=== PATIENT | male | born 1960 | race Caucasian/White ===

== ENCOUNTER 2023-06-27 08:25 | Outpatient (CLI) | payer BC, SELFPAY | END 2023-06-27 08:26 | disposition home or self-care (01) | PROVIDERS: PCP Family Medicine; Visit Provider Family Medicine | DX: Z00.00 Encounter for general adult medical examination without abnormal findings (principal); I48.91 Unspecified atrial fibrillation; Z13.6 Encounter for screening for cardiovascular disorders; Z12.5 Encounter for screening for malignant neoplasm of prostate; Z01.818 Encounter for other preprocedural examination | CPT/HCPCS: 80053; 80061; 84153; 85025 ==

== ENCOUNTER 2024-06-09 07:04 | Outpatient (CLI) | payer BC, SELFPAY ==
--- OUTSIDE RECORDS SUMMARY | 2024-06-09 07:07 | XMS_ITS | Clinical Summary ---
Author Organization [facility] Address [address] [place] [id number] Care Team Providers Care Client Success Director Name Role Phone No Ref-Primary, Physician Primary Care Provider Allergies No known active allergies Medications Medication Sig Dispensed Refills Start Date End Date Status buPROPion (WELLBUTRIN XL) 300 MG 24 hr tablet Take 300 mg by mouth every evening Active morphine (MS CONTIN) 30 MG CR tablet Take 30 mg by mouth every 12 hours Active metoprolol succinate ER (TOPROL XL) 25 MG 24 hr tablet Take 25 mg by mouth every evening 10/31/2021 Active amphetamine-dextroam phetamine (ADDERALL) 30 MG tablet Take 15 mg by mouth 2 times daily Morning and lunchtime Active UNABLE TO FIND MEDICATION NAME: Balance of nature Active cetirizine (ZYRTEC) 10 MG tablet Take 10 mg by mouth daily as needed for allergies Active acetaminophen (TYLENOL) 325 MG tabletIndications:Pr imary osteoarthritis of left hip Take 2 tablets (650 mg) by mouth every 4 hours as needed for other (mild pain) 100 tablet 07/17/2023 Active aspirin 81 MG EC tabletIndications:Pr imary osteoarthritis of left hip Take 1 tablet (81 mg) by mouth 2 times daily 60 tablet 07/17/2023 Active senna-docusate (SENOKOT-S/PERICOLAC E) 8.6-50 MG tabletIndications:Pr imary osteoarthritis of left hip Take 1-2 tablets by mouth 2 times daily Take while on oral narcotics to prevent or treat constipation. 30 tablet 07/17/2023 Active oxyCODONE (ROXICODONE) 5 MG tabletIndications:Pr imary osteoarthritis of left hip Take 1-2 tablets (5-10 mg) by mouth every 4 hours as needed for moderate to severe pain 25 tablet 07/17/2023 Active naloxone (NARCAN) 4 MG/0.1ML nasal sprayIndications:Chanda starks osteoarthritis of left hip [place] 1 spray (4 mg) into one nostril alternating nostrils as needed for opioid reversal every 2-3 minutes until assistance arrives 1 each 07/18/2023 Active Active Problems Problem Noted Date Diagnosed Date Hip osteoarthritis 07/17/2023 Family History Medical History Relation Comments Depression Brother Bone Cancer Father Relation Status Comments Brother Father Social History Tobacco Use Types Packs/Day Years Used Date Smoking Tobacco: Never Smokeless Tobacco: Never Alcohol Use Standard Drinks/Week Comments Yes 0 (1 standard drink = 0.6 oz pur e alcohol) 2 per week Adolescent Education Answer Date Record ed Getting School Help Needed Not on file 07/08 Sex and Gender Information Value Date Recorded Sex Assigned at Not on file Gender Identity Not on file Sexual Orientation Not on file Last Filed Vital Signs Vital Sign Reading Time Taken Comments Blood Pressure 113/55 07/18/2023 8:23 AM CONFIGURATION ANALYST Pulse 66 07/18/2023 8:23 AM CONFIGURATION ANALYST Temperature 36.8 ??C (98.2 ??F) 07/18/2023 8:23 AM CS T Respiratory Rate 18 07/18/2023 8:23 AM CONFIGURATION ANALYST Oxygen Saturation 92% 07/18/2023 8:23 AM CONFIGURATION ANALYST Inhaled Oxygen Concentration - - Weight 110.2 kg (243 lb) 07/17/2023 8:20 AM CONFIGURATION ANALYST Height 188 cm (6' 2) 07/17/2023 8:20 AM CONFIGURATION ANALYST Body Mass Index 31.2 07/17/2023 8:20 AM CONFIGURATION ANALYST Plan of Treatment Health Maintenance Due Date Last Done Comments ADVANCE CARE PLANNING 1962 ANNUAL REVIEW OF HM ORDERS 1962 CT COLONOGRAPHY 1962 FIT 1962 FLEX SIG 1962 YEARLY PREVENTIVE VISIT 1962 sDNA (Cologuard) 1962 COLONOSCOPY 1972 COLORECTAL CANCER SCREENING 1972 HIV SCREENING 1977 HEPATITIS C SCREENING 1980 ZOSTER IMMUNIZATION (1 of 2) 2012 RSV VACCINE (1 - Risk 60-74 years 1-dose series) 2022 PHQ-2 (once per calendar year) 2023 COVID-19 Vaccine ( season) 2024 08/14/2021, 11/30/2020, 10/28/2020 INFLUENZA VACCINE (#1) 2024 06/07/2008 GLUCOSE 07/18/2026 07/18/2023, 06/27/2023 DTAP/TDAP/TD IMMUNIZATION (3 - Td or Tdap) 01/18/2027 01/18/2017, 08/19/2004, 07/05/2004, Additional history exists LIPID 06/27/2028 06/27/2023 HPV IMMUNIZATION Aged Out No longer e ligible based on patient's age to complete this topic MENINGITIS IMMUNIZATION Aged Out No l onger eligible based on patient's age to complete this topic Pneumococcal Vaccine: Pediatrics (0 to 5 Years) and At-Risk Patients (6 to 64 Years) Aged Out No longer eligible based on patient's age to complete this topic RSV MONOCLONAL ANTIBODY Aged Out No l onger eligible based on patient's age to complete this topic Goals Goal Patient Goal Type Associated Problems Recent Progress Patient-Stated? Author Total Joint Replacement Hip Pathway Care Plan Total Joint Replacement Hip Pathway No Michelle Chin, [employer] Implanted Type Area Flask Carrier Device Identifier Shelf Expiration Date Model / Serial / Lot Trident Ii Tritanium Clusterhole 56f - [id number] Implanted:Qty: 1 on 07/17/2023 by Julio Pugh MD at [facility] Total Joint Component /Insert Left: Hip [employer] [id number] 02/21/2028 702-04-56 F / / [id number] Insert Choco 36mm 0d F Hip X3 Trdnt 723-00-36f - [id number] Implanted:Qty: 1 on 07/17/2023 by Julio Pugh MD at [facility] Total Joint Component /Insert Left: Hip [employer] [id number] 03/20/2028 723-00-36 F / / [id number] Implant Hip 41mm Nk Insg 7 Hpstm Hi Ofst 109mm 5706-5941 - [id number] Implanted:Qty: 1 on 07/17/2023 by Julio Pugh MD at [facility] Total Joint Component /Insert Left: Hip [employer] [id number] 11/11/2027 1591-2845 / / [id number] Imp Head Femoral Strk Biolox Delta Ceramic 36mm +0mm - [id number] Implanted:Qty: 1 on 07/17/2023 by Julio Pugh MD at [facility] Total Joint Component /Insert Left: Hip [employer] [id number] 04/03/2028 6570-0-13 [id number] Procedures Procedure Name Priority Date/Time Associated Diagnosis Comments GLUCOSE Routine 07/18/2023 7:27 AM CONFIGURATION ANALYST LIPID PANEL (EXTERNAL RESULT) Routine 06/27/2023 8:27 AM CONFIGURATION ANALYST from Last 3 Months or Most Recently Relevant to Health Maintenance Results * (ABNORMAL) Glucose (07/18/2023 7:27 AM CONFIGURATION ANALYST) Glucose 121(H) 70 - 99 mg/dL 07/18/2023 7:51 AM CONFIGURATION ANALYST [facility] Patient Fasting > 8hrs? Unknown 07/18/2023 7:51 AM CONFIGURATION ANALYST [facility] Blood STRUCTURE OF LEFT UPPER LIMB / Unknown Venipuncture / Unknown 07/18/2023 7:27 AM CONFIGURATION ANALYST 07/18/2023 7:30 AM CONFIGURATION ANALYST Geovanna Barba MD LAB - BLOOD ORDERABLES [facility] [address] [place] [address], [facility] [phone] * Lipid Panel (External Result) (06/27/2023 8:27 AM CONFIGURATION ANALYST) Cholesterol (External) 181 90 - 199 mg/dL [facility] Triglycerides (External) 59 40 - 149 mg/dL [facility] HDL Cholesterol (External) 50 >=40 mg/dL [facility] LDL Cholesterol Calculated (External) 119 <100 mg/dL [facility] Blood 06/27/2023 8:27 AM CONFIGURATION ANALYST Narrative [facility] - 06/27/2023 8:27 AM CONFIGURATION ANALYST [facility] RESULTS Provider Outside LAB - HIM EXTERNAL R ESULT [facility] [address] [place] [address], [facility] [phone] from Last 3 Months or Most Recently Relevant to Health Maintenance Additional Health Concerns Active Problems Noted Date Diagnosed Date Total Joint Replacement Hip Pathway 04/19/2023 Advance Directives For more information, please contact: [phone] * Full Code (Latest Code Status on File) Date Activated Date Inactivated Comments 07/17/2023 2:06 PM 07/18/2023 12:59 PM All basic and advanced life-sustaining interventions are performed as appropriate Question Answer Comments Code status determined by: Discussion with julio nt/ legal decision maker Care Teams Client Success Director Relationship Specialty Start Date End Date No Ref-Primary, Physician PCP - General 06/20/23
--- OUTSIDE RECORDS SUMMARY | 2024-06-09 07:07 | XMS_ITS | Referral Summary ---
Author Organization [facility] Address [address] [place] [address] Care Team Providers Care Manager Plan Name Role Phone No Ref-Primary, Physician Primary [...] nasal sprayIndications:Chanda starks osteoarthritis of left hip [place] 1 spray (4 mg) into one nostril alternating nostrils as needed for opioid reversal every 2-3 minutes until assistance arrives 1 each 07/18/2023 Active Active Problems Problem Noted Date Diagnosed Date Hip osteoarthritis 07/17/2023 Social History Tobacco Use Types Packs/Day Years [...] Comments Blood Pressure 113/55 07/18/2023 8:23 AM DUE DILIGENCE COORDINATOR Pulse 66 07/18/2023 8:23 AM DUE DILIGENCE COORDINATOR Temperature 36.8 ??C (98.2 ??F) 07/18/2023 8:23 AM CS T Respiratory Rate 18 07/18/2023 8:23 AM DUE DILIGENCE COORDINATOR Oxygen Saturation 92% 07/18/2023 8:23 AM DUE DILIGENCE COORDINATOR Inhaled Oxygen Concentration - - Weight 110.2 kg (243 lb) 07/17/2023 8:20 AM DUE DILIGENCE COORDINATOR Height 188 cm (6' 2) 07/17/2023 8:20 AM DUE DILIGENCE COORDINATOR Body Mass Index 31.2 07/17/2023 8:20 AM DUE DILIGENCE COORDINATOR Plan of Treatment Not on file Goals Goal Patient Goal Type Associated Problems Recent Progress Patient-Stated? Author Total Joint Replacement Hip Pathway Care Plan Total Joint Replacement Hip Pathway No Michelle Chin, [employer] Implanted Type Area Military Logistics Specialist Device Identifier Shelf Expiration Date Model / Serial / Lot Trident Ii Tritanium Clusterhole 56f - [id number] Implanted:Qty: 1 on 07/17/2023 by Julio Pugh MD at [facility] Total Joint Component /Insert Left: Hip [employer] [id number] 02/21/2028 702-04-56 F / / [id number] Insert Choco 36mm 0d F Hip X3 Trdnt 723-00-36f - [id number] Implanted:Qty: 1 on 07/17/2023 by Julio Pugh MD at [facility] Total Joint Component /Insert Left: Hip [employer] [id number] 03/20/2028 723-00-36 F / / [id number] Implant Hip 41mm Nk Insg 7 Hpstm Hi Ofst 109mm 5026-3090 - [id number] Implanted:Qty: 1 on 07/17/2023 by Julio Pugh MD at [facility] Total Joint Component /Insert Left: Hip [employer] [id number] 11/11/2027 8151-7869 / / [id number] Imp Head Femoral Strk Biolox Delta Ceramic 36mm +0mm - [id number] Implanted:Qty: 1 on 07/17/2023 by Julio Pugh MD at [facility] Total Joint Component /Insert Left: Hip [employer] [id number] 04/03/2028 6570-0-13 6 / / [id number] Procedures Procedure Name Priority Date/Time Associated Diagnosis Comments GLUCOSE Routine 07/18/2023 7:27 AM DUE DILIGENCE COORDINATOR LIPID PANEL (EXTERNAL RESULT) Routine 06/27/2023 8:27 AM DUE DILIGENCE COORDINATOR from Last 3 Months or Most Recently Relevant to Health Maintenance Results * (ABNORMAL) Glucose (07/18/2023 7:27 AM DUE DILIGENCE COORDINATOR) Glucose 121(H) 70 - 99 mg/dL 07/18/2023 7:51 AM DUE DILIGENCE COORDINATOR [facility] Patient Fasting > 8hrs? Unknown 07/18/2023 7:51 AM DUE DILIGENCE COORDINATOR [facility] Blood STRUCTURE OF LEFT UPPER LIMB / Unknown Venipuncture / Unknown 07/18/2023 7:27 AM DUE DILIGENCE COORDINATOR 07/18/2023 7:30 AM DUE DILIGENCE COORDINATOR Geovanna Barba MD LAB - BLOOD ORDERABLES [facility] [address] [facility] [place] [address], [facility] [phone] * Lipid Panel (External Result) (06/27/2023 8:27 AM DUE DILIGENCE COORDINATOR) Cholesterol (External) 181 90 - 199 mg/dL [facility] Triglycerides (External) 59 40 - 149 mg/dL [facility] HDL Cholesterol (External) 50 >=40 mg/dL [facility] LDL Cholesterol Calculated (External) 119 <100 mg/dL [facility] Blood 06/27/2023 8:27 AM DUE DILIGENCE COORDINATOR Narrative [facility] - 06/27/2023 8:27 AM DUE DILIGENCE COORDINATOR [facility] Provider Outside LAB - HIM EXTERNAL R ESULT [facility] [address] [place] [address], [facility] [phone] from Last 3 Months or Most Recently Relevant to Health Maintenance Additional Health Concerns Active Problems Noted Date Diagnosed Date Total Joint Replacement Hip Pathway 04/19/2023 Advance Directives For more information, please contact: [phone] * Full Code (Latest Code Status on File) Date Activated Date Inactivated Comments 07/17/2023 2:06 PM 07/18/2023 12:59 PM All basic and advanced life-sustaining interventions are performed as appropriate Question Answer Comments Code status determined by: Discussion with patie nt/ legal decision maker Care Teams Manager Plan Relationship Specialty Start Date End Date No Ref-Primary, Physician [facility] - General 06/20/23
--- OUTSIDE RECORDS SUMMARY | 2024-06-09 07:08 | XMS_ITS | Clinical Summary ---
Author Organization [facility] Address [place], [place] [address] Care Team Providers Care Hospital Personnel Director Name Role Phone Oswaldo Salmon MD Primary Care Provider + Allergies No known active allergies Medications Medication Sig Dispensed Refills Start Date End Date Status amoxicillin (AMOXIL) 500 mg capsuleIndications:N eed for prophylactic antibiotic Take 4 pills 1 hour before dental work 16 capsule 08/02/2016 Active naproxen (NAPROSYN) 500 mg tabletIndications:Pr imary osteoarthritis of both hips,Status post total bilateral knee replacement,Status post total replacement of right hip TAKE 1 TABLET BY MOUTH TWICE DAILY WITH MEALS 180 tablet 3 01/21/2017 Active fluticasone (50 mcg per actuation) nasal solution (FLONASE)Indications :Seasonal allergic rhinitis due to pollen Inhale 1 [place] into both nostrils once daily. 1 Bottle 12 05/08/2017 Active CPAPIndications:Obst ructive sleep apnea CPAP machine for home use at pressure: 4-15 CM H20 , Heated humidifier x 1, Humidifier chamber x 1, Full face mask with cushion x 1, Heated tubing x 1, Headgear x 1, Filters: Disposable x 1pk & Reusable x 1pk, Length of Need: 99 months, Frequency of use: Daily 1 Device 05/23/2017 Active cyclobenzaprine (FLEXERIL) 10 mg tabletIndications:Ac [place] bilateral low back pain without sciatica Take 1 tablet by mouth 3 times daily if needed for Muscle Spasm. 30 tablet 1 10/04/2017 Active sertraline (ZOLOFT) 100 mg tabletIndications:[place] depressive disorder, recurrent episode, moderate (HC) TAKE 2 TABLETS BY MOUTH EVERY DAY 180 tablet 1 05/11/2018 Active traMADol (ULTRAM) 50 mg tabletIndications:Pr imary osteoarthritis of both hips,Status post total bilateral knee replacement,Status post total replacement of right hip Take 1 tablet by mouth 4 times daily. 120 tablet 5 05/19/2018 Active buPROPion (WELLBUTRIN XL) 300 mg Extended-Release tabletIndications:Ma ke[place] depressive disorder, recurrent episode, moderate (HC) Take 1 tablet by mouth once daily. 30 tablet 2 07/01/2018 Active HYDROcodone-acetamin ophen, 7.5-325 mg, (NORCO) 7.5-325 mg per tabletIndications:St atus post total replacement of right hip,Status post total bilateral knee replacement,Primary osteoarthritis of both hips Take 2 tablets by mouth every 6 hours if needed for Pain Max acetaminophen dose: 4000mg in 24 hrs. 240 tablet 07/25/2018 Active aspirin (ECOTRIN) 81 mg enteric coated tabletIndications:At rial flutter with rapid ventricular response (HC) Take 1 Tablet (81 mg) by mouth once daily. 0 05/10/2021 Active metoprolol succinate (Toprol XL) 25 mg Sustained-Release tabletIndications:Ty pical atrial flutter (HC) Take 1 Tablet (25 mg) by mouth once daily. 90 Tablet 10/31/2021 Active Active Problems Problem Noted Date Diagnosed Date IBETH, 05/13/2017, AHI 13 07/04/2017 Status post total replacement of right hip 09/11 Controlled substance agreement signed 09/08/2015 Status post total bilateral knee replacement Issue of repeat prescription 09/08/2015 Overview (09/08/2015): [place] 7.5 mg - up to 8 per day Major depressive disorder, recurrent episode, mo derate 06/26/2015 Primary osteoarthritis of both hips 12/28/2014 Resolved Problems Problem Noted Date Diagnosed Date Resolved Date Hip osteoarthritis 01/29/2012 5 Issue of repeat prescriptions 09/24/2011 09/08/2015 Overview (08/15/2014): Takes Fentanyl and [place] daily. Depressive disorder, not elsewhere classified 06/26/2015 Osteoarthrosis, unspecified whether generalized or localized, lower leg 05/20 Immunizations Name Administration Dates Next Due Td (Age >=7 Years) 08/19/2004 Tdap 01/18/2017 Family History Medical History Relation Name Comments Psychiatric illness Brother depressi on Cancer Father bone CA d 86 yo Psychiatric illness Father dementia Cancer Mother Uterine/Lung Cancer-colon Mother Hypertension Mother CHF Psychiatric illness Sister depressi on Relation Name Status Comments Brother Father Mother Sister Social History Tobacco Use Types Packs/Day Years Used Date Smoking Tobacco: Never Smokeless Tobacco: Never Alcohol Use Standard Drinks/Week Comments Yes 10 (1 standard drink = 0.6 oz pu re alcohol) PHQ-2 Answer Date Recorded PHQ-2 Score 4 10/18/2018 Social Connections Answer Date Recorded Frequency of Communication with Friends and Fami ly Not on file 08/09/2021 Financial Resource Strain Answer Date R ecorded Difficulty of Paying Living Expenses Not on file 08/09/2021 Difficulty of Paying Living Expenses Not on file 08/09/2021 Sex and Gender Information Value Date Recorded Sex Assigned at Not on file Gender Identity Not on file Sexual Orientation Not on file Obstetrics History Last Filed Vital Signs Vital Sign Reading Time Taken Comments Blood Pressure 98/65 05/10/2021 9:00 AM CDT Pulse 66 05/10/2021 9:00 AM CDT Temperature 36.8 ??C (98.2 ??F) 05/10/2021 7:25 AM CD T Respiratory Rate 20 05/10/2021 7:25 AM CDT Oxygen Saturation 93% 05/10/2021 9:00 AM CDT Inhaled Oxygen Concentration - - Weight 117.5 kg (259 lb 1.6 oz) 05/10/2021 7:21 AM CDT Height 188 cm (6' 2) 05/10/2021 7:21 AM CDT Body Mass Index 33.27 05/10/2021 7:21 AM CDT Plan of Treatment Health Maintenance Due Date Last Done Comments HIV for age 15-65 1977 Hepatitis C screening for age 18-79 1980 Zoster (shingles) series for age 50+ (1 of 2) 2012 Colonoscopy through age 75 01/14/201901/14, 01/14/2014, 01/14/2014 Depression screening for age 12+ 07/01/2019 07/01/2018, 07/01/2018, 12/12/2017, Additional history exists BMI (ht and wt on same day) for age 18+ 09/14/2019 09/14/2018, 08/13/2018, 07/01/2018, Additional history exists Lipids for age 45-75 07/01/2023 07/01/2018, 01/18/2017, 12/31/2013, Additional history exists COVID-19 vaccine series ( season) 2024 11/30/2020, 10/28/2020 Influenza for age 50-64 04/19/2024 Tetanus booster 01/18/2027 01/18/2017, 08/19/2004 Tdap Completed 01/18/2017 Pneumococcal series for age 6-64 Aged Out No longer eligible based on patient's age to complete this topic Procedures Procedure Name Priority Date/Time Associated Diagnosis Comments LIPID PANEL W REFLEX MEASURED LDL Routine 07/01/2018 4:30 PM RIPRAP WORKER Routine general medical examination at a health care facility COLONOSCOPY SCREENING Routine 01/14/2014 Special screening for malignant neoplasms, colon from Last 3 Months or Most Recently Relevant to Health Maintenance Results * (ABNORMAL) LIPID PANEL W REFLEX MEASURED LDL (07/01/2018 4:30 PM RIPRAP WORKER) CHOLESTEROL,TOTAL 190 100 - 199 mg/dL 07/01/2018 5:00 PM RIPRAP WORKER [facility] TRIGLYCERIDES 164(H) <150 mg/dL 07/01/2018 5:00 PM RIPRAP WORKER [facility] HDL CHOLESTEROL 43 >40 mg/dL 8 5:00 PM RIPRAP WORKER [facility] NON-HDL CHOLESTEROL 147(H) <145 mg/dl 07/01/2018 5:00 PM RIPRAP WORKER [facility] CHOL/HDL RATIO 4.42 <4.50 07/01/2018 5:00 PM RIPRAP WORKER [facility] LDL CHOLESTEROL 114 <=130 mg/dL 07/01/2018 5:00 PM RIPRAP WORKER [facility] PROVIDER ORDERED STATUS RANDOM 07/01/2018 5:00 PM RIPRAP WORKER [facility] Blood BLOOD SPECIMEN / Unknown Venipuncture / Unknown 07/01/2018 4:30 PM RIPRAP WORKER 07/01/2018 4:30 PM RIPRAP WORKER Oswaldo Salmon MD CHEMISTRY [address] [address] * COLONOSCOPY SCREENING (01/14/2014) Oswaldo Salmon MD GI PROCEDURE ORD from Last 3 Months or Most Recently Relevant to Health Maintenance Care Teams Hospital Personnel Director Relationship Specialty Start Date End Date Oswaldo Salmon MD [address] [place] [address] PCP - General Family Practice 05/10/21
--- NOTE | 2024-06-09 07:15 | CRLHL7_ITS ---
For Patients: As a result of the Century Cures Act, medical imaging exams and procedure reports are released immediately into your electronic medical record. You may view this report before your referring provider. If you have questions, please contact your health care provider. EXAM: MRI OF THE RIGHT SHOULDER, WITHOUT CONTRAST CLINICAL INDICATION: Shoulder pain. Osteoarthritis. PRIOR SURGERY: None reported. COMPARISON PLAIN FILMS: 29 May 2024 COMPARISON CROSS-SECTIONAL IMAGING STUDIES: None available at time of interpretation. TECHNICAL: Axial, sagittal oblique and coronal oblique T1, PD, PD FS and T2-weighted images. 1.5 Zulma MR scanner. Shoulder surface coil. FINDINGS: GLENOHUMERAL JOINT: Effusion/Cyst: Small effusion. Strandy synovitis mostly in the axillary recess without erosion. No paralabral or periarticular cyst or ganglion. Humeral Head Articular Cartilage: Chronic appearing grade 4 cartilage loss. Subarticular sclerosis cysts and slight flattening at the superior articular margin. Glenoid Articular Cartilage: Up to grade 4 cartilage loss diffusely. Marginal osteophytes. Patchy subchondral sclerosis and edema. Loose Bodies: No appreciable loose bodies. Capsule: No convincing evidence of adhesive capsulitis or capsular injury. OSSEOUS STRUCTURES: Moderately prominent fibrocystic infiltration in the greater tuberosity under the rotator cuff footplate. CORACOACROMIAL ARCH: Acromial Morphology: Type 2 acromial morphology. No abnormal lateral or anterior downward sloping of the acromion. No os acromiale. No significant subacromial spur. Lateral acromial thickness is 6.5 mm. Acromiohumeral Interval: The acromiohumeral interval is nearly completely effaced from superior subluxation. At its narrowest, the interval measures 3 mm. No abnormal thickening of the coracoacromial ligament. Coracohumeral Interval: The coracohumeral interval is normal. At its narrowest, the coracohumeral interval measures 10 mm. Coracoid index is 12 mm. ACROMIOCLAVICULAR JOINT REGION: AC Joint: Moderate hypertrophic arthrosis. Gracile bulky osteophytes inferiorly nearly contact coracoacromial ligament and supraspinatus. Ligaments: The coracoclavicular ligaments are intact. BURSAE: Subacromial-Subdeltoid: Thin line of fluid and synovitis under the acromion. Subcoracoid: No abnormal bursal edema, thickening or bursal fluid. ROTATOR CUFF TENDONS AND MUSCLES AND DELTOID: Supraspinatus: Severe chronic degenerative appearing marginal tearing thins the tendon by greater than 75 percent distally with probable pinpoint full-thickness tearing. No fluid defined measurable full-thickness tear. Grade 1 muscle volume loss. Infraspinatus: Prominent patchy intermediate signal tendinosis and shallow articular greater than bursal distal partial tearing mildly thins the tendon. Mild grade 1 atrophy. Teres Minor: No tendinosis, tendon tearing, muscle atrophy or muscle edema. Subscapularis: Moderate undersurface degenerative partial tearing thins the tendon by 50 percent of expected. Minimal grade 1 muscle atrophy. Deltoid: No muscle atrophy or edema. BICEPS TENDON, LONG HEAD: Mild medial subluxation onto the lesser tuberosity with undersurface partial tearing elongating the tendon. Significant fluid distally. Mild intermediate signal expansion of the intra-articular tendon. Partial tearing likelihood of superior glenohumeral ligament portion of the biceps king. GLENOID LABRUM: Degenerative marginal blunting and indistinct small remnant of degenerated labrum. No linear tear or displaced labral tissue appreciated. OTHER FINDINGS: There is no abnormality within the suprascapular or spinoglenoid notches nor within the quadrilateral space. No axillary adenopathy or mass. IMPRESSION: 1. Severe osteoarthritis glenohumeral joint. Roughly 2 centimeter wide area of subchondral sclerosis and cysts with slight flattening of the superior humeral head likely chronic subchondral impaction fracture or osteonecrosis. 2. Partial tear of the biceps king and subscapularis with medial subluxation of the biceps onto the lesser tuberosity. Biceps demonstrates partial tearing over the lesser tuberosity with tendinopathy proximally and prominent tenosynovitis distally. 3. High-grade 2 pinpoint suspected full-thickness degenerative tearing supraspinatus which is prominently thinned. 4. Moderate tendinopathy and shallow articular tearing infraspinatus. 5. Moderately prominent AC DJD. Dictated by Zach Persaud MD @ 06/10/2024 9:48:17 AM (Electronically Signed)
== END 2024-06-09 07:05 | disposition home or self-care (01) ==
LOC: MRI 07:06
PROVIDERS: PCP Family Medicine; Visit Provider Family Medicine
DX: M25.511 Pain in right shoulder (principal); M19.011 Primary osteoarthritis, right shoulder; M75.101 Unspecified rotator cuff tear or rupture of right shoulder, not specified as traumatic; S46.211A Strain of muscle, fascia and tendon of other parts of biceps, right arm, initial encounter; M19.212 Secondary osteoarthritis, left shoulder
CPT/HCPCS: 73221

== ENCOUNTER 2024-07-09 08:12 | Outpatient (CLI) | payer BC, SELFPAY ==
--- OUTSIDE RECORDS SUMMARY | 2024-07-09 08:23 | XMS_ITS | Clinical Summary ---
Author Organization [facility] Address [place], [place] [address] Care Team Providers Care Fleet Assistant Name Role Phone Oswaldo Salmon MD Primary [...] allergic rhinitis due to pollen Inhale 1 [place] into both nostrils once daily. 1 Bottle [...] 05/23/2017 Active cyclobenzaprine (FLEXERIL) 10 mg tabletIndications:Ac [place] bilateral low back pain without sciatica Take [...] Issue of repeat prescription 09/08/2015 Overview (09/08/2015): Glenham 7.5 mg - up to 8 per day Major depressive disorder, recurrent episode, mo derate 06/26/2015 Primary osteoarthritis of both hips 12/28/2014 Resolved Problems Problem Noted Date Diagnosed Date Resolved Date Hip osteoarthritis 01/29/2012 5 Issue of repeat prescriptions 09/24/2011 09/08/2015 Overview (08/15/2014): Takes Fentanyl and [place]ham daily. Depressive disorder, not elsewhere classified 06/26/2015 [...] 68 05/10/2021 9:00 AM CDT Temperature 36.8 C (98.2 F) 05/10/2021 7:25 AM CDT Respiratory Rate 20 05/10/2021 7:25 AM CDT [...] 12/31/2013, Additional history exists COVID-19 vaccine series (3 - 2023- season) 2024 11/30/2020, 10/28/2020 Influenza for age 50-64 04/19/2024 Tetanus booster 01/18/2027 01/18/2017, 08/19/2004 Tdap Completed 01/18/2017 Pneumococcal series for age 6-64 Aged Out No longer eligible based on patient's age to complete this topic Procedures Procedure Name Priority Date/Time Associated Diagnosis Comments LIPID PANEL W REFLEX MEASURED LDL Routine 07/01/2018 4:30 PM LOCOMOTIVE PIPE FITTER Routine general medical examination at a health care facility COLONOSCOPY SCREENING Routine 01/14/2014 Special screening for malignant neoplasms, colon from Last 3 Months or Most Recently Relevant to Health Maintenance Results * (ABNORMAL) LIPID PANEL W REFLEX MEASURED LDL (07/01/2018 4:30 PM LOCOMOTIVE PIPE FITTER) CHOLESTEROL,TOTAL 190 100 - 199 mg/dL 07/01/2018 5:00 PM LOCOMOTIVE PIPE FITTER [facility] TRIGLYCERIDES 164(H) <150 mg/dL 07/01/2018 5:00 PM LOCOMOTIVE PIPE FITTER [facility] HDL CHOLESTEROL 43 >40 mg/dL 8 5:00 PM LOCOMOTIVE PIPE FITTER [facility] NON-HDL CHOLESTEROL 147(H) <145 mg/dl 07/01/2018 5:00 PM LOCOMOTIVE PIPE FITTER [facility] CHOL/HDL RATIO 4.42 <4.50 07/01/2018 5:00 PM LOCOMOTIVE PIPE FITTER [facility] LDL CHOLESTEROL 114 <=130 mg/dL 07/01/2018 5:00 PM LOCOMOTIVE PIPE FITTER [facility] PROVIDER ORDERED STATUS RANDOM 07/01/2018 5:00 PM LOCOMOTIVE PIPE FITTER [facility] Blood BLOOD SPECIMEN / Unknown Venipuncture / Unknown 07/01/2018 4:30 PM LOCOMOTIVE PIPE FITTER 07/01/2018 4:30 PM LOCOMOTIVE PIPE FITTER Oswaldo Salmon MD CHEMISTRY Performing Organization Address City/[facility]/ZIP Co de Phone Number [address] [place] [address] * COLONOSCOPY SCREENING (01/14/2014) Oswaldo Salmon MD GI PROCEDURE ORD from Last 3 Months or Most Recently Relevant to Health Maintenance Care Teams Fleet Assistant Relationship Specialty Start Date End Date Oswaldo Salmon MD [address] [place] [address] PCP - General Family Practice 05/10/21
--- OUTSIDE RECORDS SUMMARY | 2024-07-09 08:23 | XMS_ITS | Referral Summary ---
Author Organization [facility] Address [address] [place] [id number] Care Team Providers Care Silhouette Artist Name Role Phone No Ref-Primary, Physician Primary Care Provider Allergies No known active allergies Medications buPROPion (WELLBUTRIN XL) 300 MG 24 hr tablet Take 300 mg by mouth every evening Active morphine (MS CONTIN) 30 MG CR tablet Take 30 mg by mouth every 12 hours Active metoprolol succinate ER (TOPROL XL) 25 MG 24 hr tablet Take 25 mg by mouth every evening 11/01/19 22 Active amphetamine-dextro amphetamine (ADDERALL) 30 MG tablet Take 15 mg by mouth 2 times daily Morning and lunchtime Active UNABLE TO FIND MEDICATION NAME: Balance of nature Active cetirizine (ZYRTEC) 10 MG tablet Take 10 mg by mouth daily as needed for allergies Active acetaminophen (TYLENOL) 325 MG tabletIndications: Primary osteoarthritis of left hip Take 2 tablets (650 mg) by mouth every 4 hours as needed for other (mild pain) 100 tablet 07/17/20 23 Active aspirin 81 MG EC tabletIndications: Primary osteoarthritis of left hip Take 1 tablet (81 mg) by mouth 2 times daily 60 tablet 07/17/20 23 Active senna-docusate (SENOKOT-S/PERICOL CHOCO) 8.6-50 MG tabletIndications: Primary osteoarthritis of left hip Take 1-2 tablets by mouth 2 times daily Take while on oral narcotics to prevent or treat constipation. 30 tablet 07/17/20 23 Active oxyCODONE (ROXICODONE) 5 MG tabletIndications: Primary osteoarthritis of left hip Take 1-2 tablets (5-10 mg) by mouth every 4 hours as needed for moderate to severe pain 25 tablet 11/29/20 23 Active naloxone (NARCAN) 4 MG/0.1ML nasal sprayIndications:P rimary osteoarthritis of left hip [place] 1 spray (4 mg) into one nostril alternating nostrils as needed for opioid reversal every 2-3 minutes until assistance arrives 1 each 07/18/20 Active Active Problems Problem Noted Date Diagnosed [...] Recorded Sex Assigned at Not on file Legal Sex Male 1:14 PM CDT Gender Identity Not on file Sexual Orientation Not on file Last Filed Vital Signs Vital Sign Reading Time Taken Comments Blood Pressure 113/55 07/18/2023 8:23 AM NETWORKER Pulse 66 07/18/2023 8:23 AM NETWORKER Temperature 36.8 C (98.2 F) 07/18/2023 8:23 AM NETWORKER Respiratory Rate 18 07/18/2023 8:23 AM NETWORKER Oxygen Saturation 92% 07/18/2023 8:23 AM NETWORKER Inhaled Oxygen Concentration - - Weight 110.2 kg (243 lb) 07/17/2023 8:20 AM NETWORKER Height 188 cm (6' 2) 07/17/2023 8:20 AM NETWORKER Body Mass Index 31.2 07/17/2023 8:20 AM NETWORKER Plan of Treatment Not on file Goals Goal Patient Goal Type Associated Problems Recent Progress Patient-Stated? Author Total Joint Replacement Hip Pathway Care Plan Total Joint Replacement Hip Pathway No Michelle Chin, RHYS Medical Devices Implanted Type Area Wood Technologist Device Identifier Shelf Expiration Date Model / Serial / Lot Trident Ii Tritanium Clusterhole 56f - [id number] Implanted:Qty: 1 on 07/17/2023 by Julio Pugh MD at [facility] Total Joint Component /Insert Left: Hip [employer] [id number] 02/21/2028 702-04-56 F / / [id number] Insert Choco 36mm 0d F Hip X3 Trdnt 723-00-36f - [id number] Implanted:Qty: 1 on 07/17/2023 by Julio Pugh MD at [facility] Total Joint Component /Insert Left: Hip [employer] [id number] 03/20/2028 723-00-36 F / / [id number] Implant Hip 41mm Nk Insg 7 Hpstm Hi Ofst 109mm 3280-6585 - [id number] Implanted:Qty: 1 on 07/17/2023 by Julio Pugh MD at [facility] Total Joint Component /Insert Left: Hip [employer] [id number] 11/11/2027 3593-8781 / / [id number] Imp Head Femoral Strk Biolox Delta Ceramic 36mm +0mm - [id number] Implanted:Qty: 1 on 07/17/2023 by Julio Pugh MD at [facility] Total Joint Component /Insert Left: Hip [employer] [id number] 04/03/2028 6570-0-13 6 / / [id number] Procedures Procedure Name Priority Date/Time Associated Diagnosis Comments GLUCOSE Routine 07/18/2023 7:27 AM NETWORKER LIPID PANEL (EXTERNAL RESULT) Routine 06/27/2023 8:27 AM NETWORKER from Last 3 Months or Most Recently Relevant to Health Maintenance Results * (ABNORMAL) Glucose (07/18/2023 7:27 AM NETWORKER) Glucose 121(H) 70 - 99 mg/dL 07/18/2023 7:51 AM NETWORKER [facility] Patient Fasting > 8hrs? Unknown 07/18/2023 7:51 AM NETWORKER [facility] Blood STRUCTURE OF LEFT UPPER LIMB / Unknown Venipuncture / Unknown 07/18/2023 7:27 AM NETWORKER 07/18/2023 7:30 AM NETWORKER us Geovanna Barba MD LAB - BLOOD ORDERAB LES Final Result [facility] [address] [place] [address], [facility] [phone] * Lipid Panel (External Result) (06/27/2023 8:27 AM NETWORKER) Cholesterol (External) 181 90 - 199 mg/dL [facility] Triglycerides (External) 59 40 - 149 mg/dL [facility] HDL Cholesterol (External) 50 >=40 mg/dL [facility] LDL Cholesterol Calculated (External) 119 <100 mg/dL [facility] Blood 06/27/2023 8:27 AM NETWORKER Narrative [facility] - 06/27/2023 8:27 AM NETWORKER [facility] LAB RESULTS us Provider Outside LAB - HIM EXTERNAL RESULT Final Result [facility] [address] [place] [address], [facility] [phone] from Last 3 Months or Most Recently Relevant to Health Maintenance Additional Health Concerns Active Problems Noted Date Diagnosed Date Total Joint Replacement Hip Pathway 04/19/2023 Insurance [facility] [place]BS [place] Advance Directives For more information, please contact: [phone] * Full Code (Latest Code Status on File) Date Activated Date Inactivated Comments 07/17/2023 2:06 PM 07/18/2023 12:59 PM All basic and advanced life-sustaining interventions are performed as appropriate Question Answer Comments Code status determined by: Discussion with julio nt/ legal decision maker Care Teams Silhouette Artist Relationship Specialty Start Date End Date No Ref-Primary, Physician PCP - General 06/20/23
--- OUTSIDE RECORDS SUMMARY | 2024-07-09 08:23 | XMS_ITS | Clinical Summary ---
Author Organization [place] Address [address] [place] [address] Care Team Providers Care Bacteriology Research Assistant Name Role Phone No Ref-Primary, Physician Primary [...] for moderate to severe pain 25 tablet 07/17/20 23 Active naloxone (NARCAN) 4 MG/0.1ML nasal sprayIndications:P rimary osteoarthritis of left hip [place] 1 spray (4 mg) into one nostril [...] Comments Blood Pressure 113/55 07/18/2023 8:23 AM LEACH RUNNER Pulse 66 07/18/2023 8:23 AM LEACH RUNNER Temperature 36.8 C (98.2 F) 07/18/2023 8:23 AM LEACH RUNNER Respiratory Rate 18 07/18/2023 8:23 AM LEACH RUNNER Oxygen Saturation 92% 07/18/2023 8:23 AM LEACH RUNNER Inhaled Oxygen Concentration - - Weight 110.2 kg (243 lb) 07/17/2023 8:20 AM LEACH RUNNER Height 188 cm (6' 2) 07/17/2023 8:20 AM LEACH RUNNER Body Mass Index 31.2 07/17/2023 8:20 AM LEACH RUNNER Plan of Treatment Health Maintenance Due Date [...] Chin, ARRTom Medical Devices Implanted Type Area Drone Software Development Engineer Device Identifier Shelf Expiration Date Model / Serial / Lot Trident Ii Tritanium Clusterhole 56f - [id number] Implanted:Qty: 1 on 07/17/2023 by Julio Pugh MD at [facility] Total Joint Component /Insert Left: Hip [employer] [id number] 02/21/2028 702-04-56 F / / [id number] Insert Choco 36mm 0d F Hip X3 Trdnt 723-00-36f - [id number] Implanted:Qty: 1 on 07/17/2023 by Julio Pugh MD at [facility] Total Joint Component /Insert Left: Hip [employer] [id number] 03/20/2028 723-00-36 F / / [id number] Implant Hip 41mm Nk Insg 7 Hpstm Hi Ofst 109mm [id number] - [id number] Implanted:Qty: 1 on 07/17/2023 by Julio Pugh MD at [facility] Total Joint Component /Insert Left: Hip [employer] [id number] 11/11/2027 3973-0067 / / [id number] Imp Head Femoral Strk Biolox Delta Ceramic 36mm +0mm - [id number] Implanted:Qty: 1 on 07/17/2023 by Julio Pugh MD at [facility] Total Joint Component /Insert Left: Hip [employer] [id number] 04/03/2028 6570-0-13 / / [id number] Procedures Procedure Name Priority Date/Time Associated Diagnosis Comments GLUCOSE Routine 07/18/2023 7:27 AM LEACH RUNNER LIPID PANEL (EXTERNAL RESULT) Routine 06/27/2023 8:27 AM LEACH RUNNER from Last 3 Months or Most Recently Relevant to Health Maintenance Results * (ABNORMAL) Glucose (07/18/2023 7:27 AM LEACH RUNNER) Pathologist [facility] Glucose 121(H) 70 - 99 mg/dL 07/18/2023 7:51 AM LEACH RUNNER [facility] Patient Fasting > 8hrs? Unknown 07/18/2023 7:51 AM LEACH RUNNER [facility] Blood STRUCTURE OF LEFT UPPER LIMB / Unknown Venipuncture / Unknown 07/18/2023 7:27 AM LEACH RUNNER 07/18/2023 7:30 AM LEACH RUNNER us Geovanna Barba MD LAB - BLOOD ORDERAB LES Final Result [facility] [address] [address], [facility] [phone] * Lipid Panel (External Result) (06/27/2023 8:27 AM LEACH RUNNER) Cholesterol (External) 181 90 - 199 mg/dL [facility] Triglycerides (External) 59 40 - 149 mg/dL [facility] HDL Cholesterol (External) 50 >=40 mg/dL [facility] LDL Cholesterol Calculated (External) 119 <100 mg/dL [facility] Blood 06/27/2023 8:27 AM LEACH RUNNER Narrative [facility] - 06/27/2023 8:27 AM [facility] RESULTS us Provider Outside LAB - HIM EXTERNAL RESULT Final Result Performing Organization Address City/State/[facility] Co de Phone Number [facility] [address] [place] [address], [facility] [phone] from Last 3 Months or Most Recently Relevant to Health Maintenance Additional Health Concerns Active Problems Noted Date Diagnosed Date Total Joint Replacement Hip Pathway 04/19/2023 [place] For more information, please contact: [phone] * Full Code (Latest Code Status on File) Date Activated Date Inactivated Comments 07/17/2023 2:06 PM 07/18/2023 12:59 PM All basic and advanced life-sustaining interventions are performed as appropriate Question Answer Comments Code status determined by: Discussion with are nt/ legal decision maker Care Teams Bacteriology Research Assistant Relationship Specialty Start Date End Date No Ref-Primary, Physician PCP - General 06/20/23
== END 2024-07-09 08:13 | disposition home or self-care (01) ==
PROVIDERS: PCP Family Medicine; Visit Provider Family Medicine
DX: Z00.00 Encounter for general adult medical examination without abnormal findings (principal); I48.91 Unspecified atrial fibrillation; Z12.5 Encounter for screening for malignant neoplasm of prostate; G89.29 Other chronic pain; M16.12 Unilateral primary osteoarthritis, left hip; F32.9 Major depressive disorder, single episode, unspecified
CPT/HCPCS: 80048; 80061; 80076; G0103